=== PATIENT | female | born 1950 | race Caucasian/White ===

== ENCOUNTER 2022-12-01 05:52 | Inpatient (IN) | payer MEDICARE, OTHER ==
[~2022-12-01] VITALS: Ht 157.5 cm; Wt 80.1 kg
[2022-12-01 06:17] LABS: BASO # 0.1 K/mm3 (0.0-0.2); BASO % 0.5 % (0.0-2.0); EOS # 0.3 K/mm3 (0.0-0.7); EOS % 1.8 % (0.0-4.0); GRAN # 13.5 K/mm3 (1.4-6.5); GRAN % 77.3 % (42.2-75.2); HEMATOCRIT 42.4 % (37.0-47.0); HEMOGLOBIN 14.1 g/dl (12.5-16.0); LYMPH # 2.5 K/mm3 (1.2-3.4); LYMPH % 14.2 % (20.0-51.0); MEAN CELL VOLUME 90 fl (80.0-100.0); MEAN CORPUSCULAR HEMOGLOBIN 30 pg (27-31); MEAN CORPUSCULAR HGB CONC 33 g/dl (33.0-37.0); MEAN PLATELET VOLUME 10.5 fl (7.4-10.4); MONO % 5.8 % (1.7-9.3); PLATELET COUNT 315 K/mm3 (130-400); RED BLOOD COUNT 4.73 M/mm3 (4.10-5.30); REDCELL DISTRIBUTION WIDTH-CV 13.5 % (11.5-14.5)
[2022-12-01 06:35] LABS: ALANINE AMINOTRANSFERASE 12 U/L (0-55); ALBUMIN 3.4 gm/dL (3.4-4.8); ALKALINE PHOSPHATASE 77 U/L (40-150); ANION GAP 12 mmol/L (7-16); AST,SGOT 18 U/L (5-34); BILIRUBIN,TOTAL 0.4 mg/dL (0.2-1.2); BLOOD UREA NITROGEN 16 mg/dL (10-20); CALCIUM 9.6 mg/dL (8.4-10.2); CARBON DIOXIDE 26 mmol/L (23-31); CHLORIDE 105 mmol/L (98-107); CREATININE, serum 0.85 mg/dL (0.57-1.11); GLUCOSE 98 mg/dL (70-99); POTASSIUM 4.4 mmol/L (3.5-4.5); SODIUM 143 mmol/L (136-145); TOTAL PROTEIN 7.1 gm/dL (6.2-8.1)
[2022-12-01 06:55] LABS: TSH w REFLEX 6.237 uIU/mL (0.350-4.940)
[2022-12-01 07:02] LABS: TROPONIN-I < 0.010 ng/mL (0.00-0.033)
[2022-12-01 07:08] LABS: COLLECTION METHOD CLEAN CATCH
[2022-12-01 07:19] LABS: MUCOUS Present (NOT PRESENT); URINE BACTERIA Rare /hpf (NONE SEEN)
[2022-12-01 07:22] LABS: URINE APPEARANCE Clear (CLEAR/HAZY); URINE COLOR Yellow (YELLOW); URINE GLUCOSE Negative (NEGATIVE); URINE KETONE Negative (NEGATIVE); URINE NITRATE Negative (NEGATIVE); URINE PROTEIN(semi-quant) Negative (NEGATIVE); URINE UROBILINOGEN 0.2 E.U/dL (0.2-1.0)
[2022-12-01 07:23] LABS: URINE BLOOD TRACE-INTACT (NEGATIVE)
[2022-12-01] MEDS ORDERED: SYNTHROID 0.0.025 MG PO (11:24)
[2022-12-01] MEDS ORDERED: ZETIA 10MG TAB10 MG PO (11:25)
[2022-12-01] MEDS ORDERED: NEXLETOL180 MG PO (11:26)
[2022-12-01] MEDS ORDERED: LIVALO4 MG PO (11:26)
[2022-12-01 11:29] VITALS: BP 113/43; PULSE 82; TEMP 98.6
[2022-12-01] MEDS ORDERED: NEXIUM 40MG40 MG PO (12:09)
[2022-12-01 16:00] VITALS: BP 104/43; PULSE 71; TEMP 98.1
[2022-12-01 19:49] VITALS: BP 99/45; PULSE 79; TEMP 97.7
[2022-12-01 20:14] VITALS: BP 127/51; PULSE 86; TEMP 98.3
[2022-12-01 23:15] VITALS: BP 106/37; PULSE 71; TEMP 98
[2022-12-02 03:23] VITALS: BP 103/35; PULSE 79; TEMP 98
[2022-12-02 06:31] LABS: BASO # 0.1 K/mm3 (0.0-0.2); BASO % 0.5 % (0.0-2.0); EOS # 0.2 K/mm3 (0.0-0.7); EOS % 2.2 % (0.0-4.0); GRAN # 5.8 K/mm3 (1.4-6.5); HEMATOCRIT 33.6 % (37.0-47.0); HEMOGLOBIN 10.6 g/dl (12.5-16.0); LYMPH # 2.3 K/mm3 (1.2-3.4); LYMPH % 24.8 % (20.0-51.0); MEAN CELL VOLUME 92 fl (80.0-100.0); MEAN CORPUSCULAR HEMOGLOBIN 29 pg (27-31); MEAN CORPUSCULAR HGB CONC 32 g/dl (33.0-37.0); MEAN PLATELET VOLUME 11.3 fl (7.4-10.4); MONO # 0.7 K/mm3 (0.1-0.6); MONO % 7.8 % (1.7-9.3); PLATELET COUNT 228 K/mm3 (130-400); RED BLOOD COUNT 3.64 M/mm3 (4.10-5.30); REDCELL DISTRIBUTION WIDTH-CV 13.9 % (11.5-14.5)
[2022-12-02 06:48] LABS: CALCIUM 8.7 mg/dL (8.4-10.2); CREATININE, serum 0.72 mg/dL (0.57-1.11)
[2022-12-02 07:40] VITALS: BP 113/43; PULSE 79; TEMP 97.8
[2022-12-02 11:53] VITALS: BP 121/51; PULSE 80; TEMP 97.6
[2022-12-02 15:30] VITALS: BP 120/49; PULSE 97; TEMP 98
[2022-12-02 20:01] VITALS: BP 130/54; PULSE 87; TEMP 98
[2022-12-02 23:44] VITALS: BP 126/54; PULSE 77; TEMP 98.4
[2022-12-03 03:28] VITALS: BP 127/59; PULSE 83; TEMP 98.1
[2022-12-03 06:59] LABS: BASO # 0.1 K/mm3 (0.0-0.2); BASO % 0.8 % (0.0-2.0); EOS # 0.3 K/mm3 (0.0-0.7); EOS % 3.9 % (0.0-4.0); GRAN # 4.2 K/mm3 (1.4-6.5); GRAN % 54.6 % (42.2-75.2); HEMOGLOBIN 10.9 g/dl (12.5-16.0); LYMPH # 2.5 K/mm3 (1.2-3.4); LYMPH % 32.5 % (20.0-51.0); MEAN CELL VOLUME 92 fl (80.0-100.0); MEAN CORPUSCULAR HEMOGLOBIN 29 pg (27-31); MEAN CORPUSCULAR HGB CONC 32 g/dl (33.0-37.0); MEAN PLATELET VOLUME 11.1 fl (7.4-10.4); MONO # 0.6 K/mm3 (0.1-0.6); MONO % 7.7 % (1.7-9.3); PLATELET COUNT 241 K/mm3 (130-400); RED BLOOD COUNT 3.74 M/mm3 (4.10-5.30); REDCELL DISTRIBUTION WIDTH-CV 13.9 % (11.5-14.5)
[2022-12-03 07:01] LABS: HEMATOCRIT 34.5 % (37.0-47.0)
[2022-12-03] MEDS ORDERED: OMNICEF 300MG300 MG PO (07:09)
[2022-12-03 07:11] LABS: CALCIUM 8.7 mg/dL (8.4-10.2); CREATININE, serum 0.75 mg/dL (0.57-1.11); POTASSIUM 4.1 mmol/L (3.5-4.5)
[2022-12-03 07:13] VITALS: BP 129/59; PULSE 73; TEMP 97.2
[2022-12-03 07:24] VITALS: BP 129/55; PULSE 74; TEMP 97.7
== END 2022-12-03 10:45 | disposition home or self-care (01) | DRG 871 ==
LOC: COL.ER 05:52 → MEDICAL 08:54
PROVIDERS: Emergency Medicine; Physician Assistant; ADMIT Hospitalist
DX: A41.9 Sepsis, unspecified organism (principal); J18.9 Pneumonia, unspecified organism; J96.01 Acute respiratory failure with hypoxia; N39.0 Urinary tract infection, site not specified; Z20.822 Contact with and (suspected) exposure to COVID-19; E78.5 Hyperlipidemia, unspecified; E03.9 Hypothyroidism, unspecified; Z88.8 Allergy status to other drugs, medicaments and biological substances; Z90.710 Acquired absence of both cervix and uterus; Z79.890 Hormone replacement therapy
CPT/HCPCS: J0456; J0696; J1650; J2405; J7030; J7050; J7120